=== PATIENT | female | born 1960 | race Caucasian/White ===

== ENCOUNTER 2019-03-22 15:58 | Emergency (ER) | payer BC, SELFPAY ==
[2019-03-22 16:07] VITALS: BP 163/83; PULSE 86; RESP 14; TEMP 36.1; O2SAT 96; BMI 26.6
--- NOTE | 2019-03-22 17:08 | ED_ITS ---
HPI - URI/Sore Throat <CLEO Card - Last Filed: 03/22/19 20:36> General Chief Complaint: Upper Respiratory Symptoms Stated Complaint: Something lodged in throat for a week Time Seen by Provider: 03/22/19 16:13 Source: patient Mode of arrival: ambulatory Limitations: no limitations History of Present Illness HPI Narrative: 59-year-old fairly healthy female, presents emergency department today complaining of a food stuck in her throat. She states a week ago she was eating a Brownie with walnuts when she felt like a piece if it got caught in the left side of her throat. She states she has a constant 3/10 pain, occasional burning, and a feeling like something is still stuck in her throat. She states yesterday she noticed a slight increase of pain, she was seen in the emergency department of [place] she was given soda, after this she stated that she felt like a piece of it moved. She is referred to ENT and told that she needed an endoscope. Patient presented to the emergency department hoping that she can could get an endoscope today, however, no order was placed. Patient denies fevers, chest pain, shortness of breath, difficulty breathing, inability to swa llow secretions, nasal discharge, abdominal pain, nausea, or vomiting. She states that she thought about trying to make herself vomit last night but was scared that it would move the piece of food into her airway. Additionally, she states she is able to eat and drink solids and liquids. Related Data Home Medications Medication Instructions Recorded Confirmed diethylpropion 75 mg PO DAILY 03/22/19 03/22/19 hydromorphone 2 mg PO Q4-6H PRN 03/22/19 03/22/19 nortriptyline 10 mg PO BEDTIME 03/22/19 03/22/19 pregabalin [Lyrica] 75 mg PO TID 03/22/19 03/22/19 zolpidem 12.5 mg PO BEDTIME 03/22/19 03/22/19 Allergies Allergy/AdvReac Type Severity Reaction Status Date / Time No Known Drug Allergies Allergy Verified 03/22/19 16:07 Review of Systems <CLEO Card - Last Filed: 03/22/19 20:36> Review of Systems Narrative: REVIEW OF SYSTEMS: GENERAL: Denies fever or chills. HENT: No head trauma, hearing loss or sore throat. EYES: No loss of vision, double vision, eye pain, or irritation. CARDIOVASCULAR: No chest pain or syncope. RESPIRATORY: Complains of something stuck in her throat, see HPI. GASTROINTESTINAL: No nausea, vomiting, diarrhea, or constipation. GENITOURINARY: No flank pain or dysuria. MUSCULOSKELETAL: No pain, weakness, or deformities. INTEGUMENTARY: No rash, lesions, or pruritus. NEURO: No numbness, tingling, memory loss, or confusion. PSYCH: No behavior or mood changes. PFSH <CLEO Card - Last Filed: 03/22/19 20:36> Medical History No significant medical problems (Acute) Social History Smoking Status: Unknown if ever smoked Social History Smoking Status: Unknown if ever smoked Exam <CLEO Card - Last Filed: 03/22/19 20:36> Initial Vital Signs Initial Vital Signs: Vital Signs Temperature 96.9 F L 03/22/19 16:07 Pulse Rate 86 03/22/19 16:07 Respiratory Rate 14 03/22/19 16:07 Blood Pressure 163/83 H 03/22/19 16:07 Pulse Oximetry 96 03/22/19 16:07 PHYSICAL EXAMINATION: GENERAL: Well groomed, alert, and cooperative. Answers questions promptly and appropriately. Vital signs noted. HENT: Normocephalic, atraumatic. Ear canals patent. Oral mucosa is pink and moist. Uvula midline, elevates with sound, no tonsils present. EYES: Conjunctiva pink, sclera white, no periorbital swelling. CHEST: Normal to inspection and without deformities. CARDIOVASCULAR: S1 and S2 sounds normal. Regular rate and rhythm, no murmurs, clicks, or bruits. No pedal edema. RESPIRATORY: Normal respiratory rate, trachea midline, airway patent. No stridor, nasal flaring or accessory muscle use. Lungs are clear in all dorsey without wheeze, rhonchi, or crackles. GASTROINTESTINAL: Bowel sounds normoactive. Abdomen is soft and non-tender. No organomegaly. MUSCULOSKELETAL: Normal gait and coordination. Equal tone and mass bilaterally. EXTREMITIES: CMS intact. Moves all extremities. SKIN: Warm, dry, soft, appropriate color for ethnicity. No lesions, rashes, or wounds. NEURO: Alert and Oriented X 3. Good coordination. No ataxia, or sensory deficits, or cognitive issues. PSYCH: Appropriate affect and mood. <Zelda Cerda DO - Last Filed: 03/23/19 08:16> Initial Vital Signs Initial Vital Signs: Vital Signs Temperature 96.9 F L 03/22/19 16:07 Pulse Rate 86 03/22/19 16:07 Respiratory Rate 14 03/22/19 16:07 Blood Pressure 163/83 H 03/22/19 16:07 Pulse Oximetry 96 03/22/19 16:07 Course <CLEO Card - Last Filed: 03/22/19 20:36> Course Course Narrative: After extensive discussion with patient, she was informed that and endoscopies not performed within the emergency department especially when her condition is stable. At 1645 for consult, he was able to schedule an outpatient endoscopy on Tuesday and . Papers were sent from the clinic to the emergency department with the patient. Patient was given a GI cocktail for symptom control which she states improved her symptoms. She was also instructed to take [id number] omeprazole 20mg a day until her endoscopy. Orders Ordered: Discontinued Medications Al Hydrox/Mg Hydrox/Simethicone 20 ml/ Lidocaine HCl 15 ml 0 ml PO NOW ONE Stop: 03/22/19 16:55 Last Admin: 03/22/19 17:31 Dose: 15 ml Documented by: PETRONA Consultations Consultation #1: Dr. Powers was consulted. Time: 16:45 Vital Signs Vital signs: Vital Signs - 8 hr 03/22/19 16:07 03/22/19 17:39 Temperature 96.9 F L Pulse Rate 86 68 Respiratory Rate 14 20 Blood Pressure 163/83 H 136/89 Pulse Oximetry 96 99 <Zelda Cerda DO - Last Filed: 03/23/19 08:16> Orders Ordered: Discontinued Medications Al Hydrox/Mg Hydrox/Simethicone 20 ml/ Lidocaine HCl 15 ml 0 ml PO NOW ONE Stop: 03/22/19 16:55 Last Admin: 03/22/19 17:31 Dose: 15 ml Documented by: PETRONA Vital Signs Vital signs: Vital Signs - 8 hr 03/22/19 16:07 03/22/19 17:39 Temperature 96.9 F L Pulse Rate 86 68 Respiratory Rate 14 20 Blood Pressure 163/83 H 136/89 Pulse Oximetry 96 99 [facility] - URI/Sore Throat <CLEO Card - Last Filed: 03/22/19 20:36> Medical Records Attestation: I reviewed the patient's medical records. Lab Data Attestation: I reviewed the patient's lab results. [facility] Narrative Medical decision making narrative: Differential includes foreign body in esophagus (most likely due to symptoms occurring while eating, continued feelings of some air throat, reports of movement of something in her throat after consuming soda), GERD (less likely due to lack of epigastric pain, lack of history of GERD, onset during eating), esophageal laceration or abrasion (less likely as she states she felt a after ?move after drinking soda. Endoscopy was scheduled with Dr. Powers. Very little concern for airway obstruction as patient is maintaining secretions, talking full sentences, no change in voice quality, patient is able to eat and drink without symptoms, patient denies shortness of breath or airway swelling. Strict return precautions given and follow-up instructions discussed. Discharge Plan Departure Patient Disposition: Home Clinical Impression: Pain in throat Discharge Date/Time: 03/22/19 17:40 Activity Restrictions/Additional Instructions: Thank you for entrusting me with your care today. As discussed, I spoke with our surgeon on-call, Dr. Powers was able to schedule you you for an endoscopy appointment this Tuesday at noon. If you have any questions you can call the clinic at [phone]. You were given papers to fill out before your appointment, please bring these to her appointment on Tuesday. Please return to the emergency department if you are unable to swallow, experience swelling of your airway, difficulty breathing, syncope, chest pain, shortness of breath. Prescriptions: No Action diethylpropion 75 mg tablet extended release 75 mg PO DAILY RF: 0 hydromorphone 2 mg tablet 2 mg PO Q4-6H PRN (Reason: pain) RF: 0 nortriptyline 10 mg capsule 10 mg PO BEDTIME RF: 0 Lyrica 75 mg capsule 75 mg PO TID RF: 0 zolpidem 12.5 mg tablet,ext release multiphase 12.5 mg PO BEDTIME RF: 0
[2019-03-22] MEDS: MAG HYDROX/ALUMINUM/SIMETH SUS 20 ML, LIDOCAINE VISCOUS 2% 15 ML PO (17:31)
[2019-03-22 17:39] VITALS: BP 136/89; PULSE 68; RESP 20; O2SAT 99
== END 2019-03-22 17:40 | disposition home or self-care (01) ==
PROVIDERS: Emergency Provider Nurse Practitioner
DX: J02.9 Acute pharyngitis, unspecified (principal)
CPT/HCPCS: 99282; 99283